=== PATIENT | male | born 1990 | race Caucasian/White ===

== ENCOUNTER 2021-06-23 15:56 | Emergency (ER) | payer MEDICAID ==
[~2021-06-23] VITALS: Ht 167.6 cm; Wt 121.1 kg
[2021-06-23 16:24] VITALS: BP 130/79
[2021-06-23] MEDS ORDERED: ACETAMINOPHEN 650 MG/20.3 ML UDC PO ONE (17:25)
[2021-06-23] MEDS ORDERED: TOMOMETER 1 DEV DEV MC ONE (18:49)
[2021-06-23] MEDS ORDERED: TETRACAINE HCL/PF 0.5% OPTH 4 ML BTL ONE (18:49)
[2021-06-23] MEDS ORDERED: TETRACAINE HCL/PF 0.5% OPTH 4 ML BTL OP ONE (18:50)
[2021-06-23] MEDS ORDERED: ACETAMINOPHEN 650 MG/20.3 ML UDC ONE (19:06)
[2021-06-23] MEDS ORDERED: IBUP-2213 PO (19:06)
[2021-06-23] MEDS ORDERED: CYCL-711 PO (19:06)
== END 2021-06-23 19:18 | disposition home or self-care (01) ==
LOC: MED 15:56
DX: R51.9 Headache, unspecified (principal)
CPT/HCPCS: 70450; 72072; 99284